=== PATIENT | female | born 1975 | race Caucasian/White ===

== ENCOUNTER → 2018-09-15 | Outpatient (CLI) | payer OTHER ==
--- NOTE | 2018-09-15 16:30 | KCIC ---
Examination: CHEST PA LATERAL History: Right-sided chest pain Comparison/Correlation: None Findings: PA and lateral views of chest were obtained. Heart size and pulmonary vasculature are normal. No infiltrate or pleural effusion. No pneumothorax. Bony structures are unremarkable. Impression: Normal two-view chest x-ray exam. Electronically signed by: Phi Farris MD (09/15/2018 4:27 PM) [facility]
== END | disposition home or self-care (01) ==
LOC: KCIC 14:46
PROVIDERS: ATTEND Nurse Practitioner Family
DX: R07.89 Other chest pain (principal)
CPT/HCPCS: 71046